=== PATIENT | male | born 1950 | race Hispanic/Latino ===

== ENCOUNTER 2017-09-25 07:47 | Emergency (ER) | payer MEDICARE ==
--- NOTE | 2017-09-25 08:41 | C.PDOC ---
History Of Present Illness 66-year-old male, underwent MOHS surgical procedure for basal cell skin cancer on bridge of nose yesterday, there was a new lesion found next to area and there was biopsy done. Due to defect being large, patients xeroform dressing was stitched to the skin. States he developed bleeding overnight, resulting in him coming to the ED for evaluation. Patient has a f/u appointment with his Mohs surgeon and plastic surgeon in five days. Denies nausea/vomiting, fevers, chills, chest pain or shortness of breath. No other complaints at this time. Time Seen by Provider: 09/25/17 07:49 Chief Complaint (Nursing): Abnormal Skin Integrity History Per: Patient History/Exam Limitations: no limitations Onset/Duration Of Symptoms: Days Current Symptoms Are (Timing): Gone Past Medical History Reviewed: Historical Data, Nursing Documentation, Vital Signs Vital Signs: Last Vital Signs Temp 97.3 F L 09/25/17 09:00 Pulse 83 09/25/17 09:00 Resp 17 09/25/17 09:00 BP 131/70 09/25/17 09:00 Pulse Ox 97 09/25/17 10:50 - Medical History PMH: Kidney Stones, Rheumatoid Arthritis Family History: States: No Known Family Hx - Social History Hx Alcohol Use: Yes Hx Substance Use: No - Immunization History Hx Tetanus Toxoid Vaccination: Yes Hx Influenza Vaccination: Yes (2017) Hx Pneumococcal Vaccination: No Review Of Systems Except As Marked, All Systems Reviewed And Found Negative. Constitutional: Negative for: Fever, Chills ENT: Positive for: Nose Pain Respiratory: Negative for: Shortness of Breath Gastrointestinal: Negative for: Nausea, Vomiting Physical Exam - Physical Exam Appears: Non-toxic, No Acute Distress Skin: Warm, Dry, No Rash Head: Atraumatic, Normacephalic Nose: Other (folded xeroform stitched to skin. Minimal dried crusting. No active bleeding.) Oral Mucosa: Moist Lips: Normal Appearing Neck: Normal ROM Chest: Symmetrical Cardiovascular: Rhythm Regular, No Murmur Respiratory: Normal Breath Sounds, No Accessory Muscle Use Extremity: Normal ROM ED Course And Treatment O2 Sat by Pulse Oximetry: 97 Pulse Ox Interpretation: Normal Reassessment Condition: Improved (dry bloody crust cleaned with sterile saline, no active bleeding) Disposition Counseled Patient/Family Regarding: Diagnosis, Need For Followup - Disposition Referrals: Non [facility] Provider, [Non-Staff] - Disposition: HOME/ ROUTINE Disposition Time: 08:42 Condition: STABLE Additional Instructions: FOLLOW UP WITH YOUR MOHS SURGEON ON WEDNESDAY SCHEDULED. IF BLEEDING OR ANY NEW CONCERNING SYMPTOMS DEVELOP RETURN TO ED. Forms: [employer] (Kazakh) - Clinical Impression Clinical Impression: Visit for wound check - Scribe Statement The provider has reviewed the documentation as recorded by the Scribe (Savanna May) All medical record entries made by the Scribe were at my direction and personally dictated by me. I have reviewed the chart and agree that the record accurately reflects my personal performance of the history, physical exam, medical decision making, and the department course for this patient. I have also personally directed, reviewed, and agree with the discharge instructions and disposition.
[2017-09-25 09:00] VITALS: BP 131/70; PULSE 83; RESP 17; TEMP 97.3
[2017-09-25 10:25] VITALS: O2SAT 97
== END 2017-09-25 09:05 | disposition home or self-care (01) ==
LOC: C.ER 07:47
DX: Z51.89 Encounter for other specified aftercare (principal); M06.9 Rheumatoid arthritis, unspecified